=== PATIENT | male | born 1980 ===

== ENCOUNTER 2021-12-10 09:43 | Outpatient (CLI) | payer BC, SELFPAY ==
[2021-12-10 13:45] LABS: Chloride* 101 mmol/L (96-114); Sodium* 140 mmol/L (135-149)
[2021-12-10 13:48] LABS: Blood Urea Nitrogen* 16 mg/dL (5-24); Carbon Dioxide* 30 mmol/L (20-32); Cholesterol* 187 mg/dL (90-199); Estimated Glomerular Filt Rate 98 ml/min; Glucose* 107 mg/dL (60-115); Triglycerides* 129 mg/dL (40-149)
[2021-12-10 13:49] LABS: Calcium* 9.9 mg/dL (8.4-10.6); HDL Cholesterol* 49 mg/dL (>=40); LDL Cholesterol Calculated 112 mg/dL (<100)
== END 2021-12-10 09:44 | disposition home or self-care (01) ==
PROVIDERS: PCP Family Medicine; Visit Provider Family Medicine
DX: Z00.00 Encounter for general adult medical examination without abnormal findings (principal); Z13.6 Encounter for screening for cardiovascular disorders
CPT/HCPCS: 80048; 80061